=== PATIENT | male | born 1935 | race Caucasian/White ===

== ENCOUNTER 2019-03-22 12:08 | Emergency (ER) | payer MEDICARE, SELFPAY ==
[2019-03-22 12:08] VITALS: BP 144/90; PULSE 107; RESP 18; TEMP 36.9; O2SAT 98; BMI 30.1
[2019-03-22 12:27] VITALS: O2SAT 99
--- NOTE | 2019-03-22 12:27 | EKG12_ITS ---
Test Reason : SYNCOPE Blood Pressure : / mmHG Vent. Rate : 107 BPM Atrial Rate : 170 BPM P-R Int : 000 ms QRS Dur : 082 ms QT Int : 342 ms P-R-T Axes : 000 -45 029 degrees QTc Int : 456 ms Atrial fibrillation with rapid ventricular response Left anterior fascicular block Cannot rule out Inferior infarct (masked by fascicular block?) , age undetermined Poor R- wave Progression Abnormal ECG Confirmed by JEAN-CLAUDE OLMOS, MYRANDA ([id number]), tape editor JOSESITO SALAZAR ([id number]) on 03/24/2019 11:29:25 AM Referred By: ANNIE Confirmed By:MYRANDA BERMEO MD
--- NOTE | 2019-03-22 12:27 | RAD_ITS ---
STUDY: X-RAY CHEST REASON FOR EXAM: Male, 83 years old. Chest pain. TECHNIQUE: Single frontal view of the chest. COMPARISON: September 20, 2016 FINDINGS: Stable low volume inspiration with diffuse interstitial pattern. There is no demonstrated pleural abnormality. Mild cardiomegaly unchanged. Normal mediastinum and medardo. Normal visualized pulmonary arteries. Normal visualized aortic arch and descending thoracic aorta. Normal visualized thoracic spine. Normal visualized ribs, clavicles, and shoulders. There is no demonstrated abnormality of the visualized soft tissue structures of the upper abdomen. RAD/Chest 1 View (Portable) IMPRESSION: Stable chest with no acute superimposed finding. Electronically Signed: Tk Xiong MD at 14:11 EDT , Service support ,
--- NOTE | 2019-03-22 12:27 | CT_ITS ---
We are attempting to reach an attending provider to discuss findings. An addendum with communication details will be sent when the communication is complete. STUDY: CT BRAIN WITHOUT CONTRAST REASON FOR EXAM: Male, 83 years old. Syncope fall hit head RADIATION DOSAGE (If Supplied By Facility): CTDIvol = ( 44.99 ) mGy, DLP = ( 829.85 ) mGycm TECHNIQUE: Transaxial CT imaging of the brain was performed without administration of intravenous contrast material. Individualized dose optimization techniques were used for this CT. COMPARISON: No relevant priors. FINDINGS: Normal soft tissue structures. Normal calvarium. There is mild cerebral atrophy with widening of the extra-axial spaces and ventricular dilatation. There are areas of decreased attenuation within the white matter tracts of the supratentorial brain, consistent with microvascular disease changes. Normal basal ganglia and thalami. Normal brainstem. Normal cerebellum. To the right of midline there is a thickened appearance of the parafalcine line with hyperdensity. There is a hyperdense focal area in the right of midline within the posterior parietal lobe that is suspicious for small focal parenchymal hemorrhage. There are no findings of an acute ischemic infarction. Normal visualized paranasal sinuses. CT/Brain/Head without Contrast IMPRESSION: 3 mm right side, thickening of the parafalcine line. Findings suspicious for subdural hemorrhage with adjacent small focal parietal parenchymal hematoma measuring 3 x 5 mm. No visualized fracture. Electronically Signed: Dana Pham MD at 13:59 EDT Tel , Service support ,
--- NOTE | 2019-03-22 12:30 | ED.DCSUM_ITS ---
- ER Visit Summary Date of Service: 03/22/19 Chief Complaint: Acute syncopal event History of Present Illness: The patient is a 83 M history of Parkinson's disease, type 2 insulin-dependent diabetes and hypertension. Reportedly the patient felt fine today and is felt fine the last few days. He is accompanied by his . As he was walking in the zoroastrian in front of her. He passed out today falling backwards striking the back of his head. He had a brief loss of consciousness. He is on no blood thinners. He denies any neck pain. No weakness or numbness. He had no chest pain or shortness of breath prior to the event. He has not passed out before. He has had no history of any abnormal heart rhythms or cardiac disease. Physical Examination: Older male no acute distress. Brought in by squad. Initial blood pressure 144/90. Pulse ox 90% room air no signs of hypoxia. H EENT exam unremarkable. There is no signs of bruising or trauma or hematoma to the back of his head. Nontender. C-spine nontender. Trachea midline. Lungs clear to auscultation bilaterally. Heart irregularly irregular rate about 105. No murmurs. Chest wall nontender. Abdomen is soft and nontender. Normal bowel sounds no peritoneal signs. Pelvic girdle is intact. Patient is moving all 4 extremities. He has normal insurance auditor strength bilaterally. Normal dorsi plantar flexion. There is no joint tenderness, swelling or deformity. Back is nontender. Neurologically is awake and alert with no focal motor deficits. He is answering questions and following commands. Test Results: Initial EKG showed A. fib RVR with rate of 107. CBC showed a white count 7. Hemoglobin 11.3 his baseline hemoglobin past is been 12. Letter lites unremarkable BUN 28 creatinine 1. Normal gap. PT/INR normal. Troponin normal less than 0.015. Chest x-ray shows chronic changes no acute process. CT of his brain shows 3 mm thickening of the para fall seen Consistent with a possible intracranial bleed. There is also a parietal parenchymal hypodensity consistent with a 3 to 5 mm hematoma consistent with an intracranial bleed. There is no shift. There is no obvious skull fracture. Due to the findings of the CAT scan of the brain we did obtain a CT of the C- spine I have reviewed this there is no formal interpretation as of yet but I do not see any obvious acute cervical fracture. Emergency Department Course and Treatment: Patient had a syncopal event. On exam he appears to be in new onset A. fib with RVR. He will undergo cardiac work-up. I will CT his brain due to the head injury and the possibility that he may need to be started on blood thinners. Treatment Plan: On repeat exam at 1:45 PM patient is doing well and currently he is now spontaneously gone out of A. fib and is in a sinus rhythm in the 70s. Currently is having no symptoms. Given that this may be new onset A. fib and that he had a syncopal event with it I did discuss with both he and his and he will be admitted to the hospitalist. I discussed with them getting a cardiology consult while he is hospitalized. After the radiologist and I discussed the CAT scan of the brain see decision was made to transfer the patient. Discussed that with both he and his family at length. I have already spoken to [facility] and they will accept patient in transfer to the emergency department. I am awaiting his CT C-spine reading. Disposition: Admission Impression: Acute syncopal event Acute fall with closed head injury Acute small intracranial bleed New onset transient A. fib with RVR History of heart disease, diabetes and hypertension This note was generated with [employer] dictation software. It may contain incorrect words, spelling, and punctuation that were not noted in review of the chart prior to signing ED Disposition - Plan for ED Patient: Referrals: Cecilia Santoro MD [Primary Care Provider] -
[2019-03-22 12:35] LABS: Absolute Lymphocyte Count 1.17 X10^3/uL (0.83-4.51); Absolute Neutrophil Count 5.4 X10^3/uL (2.0-7.7); Basophil# 0.04 X10^3/uL; Basophil% 0.5 % (0-1); Eosinophil# 0.18 X10^3/uL; Eosinophils% 2.4 % (0-5); Hematocrit 33.4 % (40-54); Hemoglobin 11.3 g/dL (13.0-16.5); Lymphocyte # 1.17 X10^3/ul (4.0); Lymphocyte % 15.7 % (19-41); Mean Corp Hgb Conc 33.8 g/dL (32-36); Mean Corpuscular Hgb 33.2 pg (27.0-32.0); Mean Corpuscular Volume 98.2 fL (80-94); Mean Platelet Vol. 11.7 fl (6.2-12.0); Monocyte# 0.64 X10^3/uL; Monocyte% 8.6 % (0-10); NRBC Flagged by Analyzer 0 % (0-5); Neutrophil # 5.38 X10^3/uL (2.7-7.7); Platelet Count 217 K/mm3 (150-450); RBC Distribution Width CV 14.7 % (11.6-14.6); RBC Distribution Width SD 51.9 fl (35.1-43.9); White Blood Count 7.5 K/mm3 (4.4-11.0)
[2019-03-22 12:50] LABS: International Normalized Ratio 1.2; Prothrombin Time (Protime)PT. 14.7 SECONDS (11.7-14.9)
[2019-03-22 12:54] LABS: Anion Gap 9 (5-15); BUN 28 mg/dL (7-18); BUN/Creat Ratio 26.2 RATIO (10-20); Calcium,Total 8.5 mg/dL (8.5-10.1); Chloride 108 mmol/L (98-107); Creatinine, Serum 1.07 mg/dL (0.70-1.30); EST Glomerular Filtration Rate 70 mL/min (>60); Est Glom Filt Rate - Afr Amer 85 mL/min (>60); Estimated Creatinine Clearance 53.06 ml/min; Glucose 129 mg/dL (74-106); Potassium 4.2 mmol/L (3.5-5.1); Sodium Level 143 mmol/L (136-145); Thyroid Stim Hormone (TSH) 1.59 uIU/mL (0.358-3.74)
--- NOTE | 2019-03-22 13:49 | EKG12_ITS ---
Test Reason : RHYTHMN CHANGE Blood Pressure : / mmHG Vent. Rate : 066 BPM Atrial Rate : 066 BPM P-R Int : 168 ms QRS Dur : 078 ms QT Int : 412 ms P-R-T Axes : 065 -35 023 degrees QTc Int : 431 ms Normal sinus rhythm Left axis deviation Poor R- wave Progression Abnormal ECG Confirmed by JEAN-CLAUDE OLMOS, MYRANDA ([id number]), proposal editor JOSESITO SALAZAR ([id number]) on 03/24/2019 11:32:28 AM Referred By: ANNIE Confirmed By:MYRANDA BERMEO MD
[2019-03-22 14:16] VITALS: BP 148/94; PULSE 65; RESP 17; O2SAT 97
--- NOTE | 2019-03-22 14:30 | CT_ITS ---
STUDY: CT CERVICAL SPINE WITHOUT CONTRAST REASON FOR EXAM: Male, 83 years old. Syncope and fall. RADIATION DOSAGE (If Supplied By Facility): CTDIvol = ( 29.19 ) mGy, DLP = ( 701.73 ) mGycm TECHNIQUE: High resolution transaxial imaging was performed without contrast material. Sagittal and coronal images were reconstructed. Individualized dose optimization techniques were used for this CT. COMPARISON: None FINDINGS: Normal craniovertebral junction. There are degenerative changes of the anterior atlantoaxial articulation. Normal odontoid process. Normal cervical lordosis. The vertebral body heights are preserved. There is multilevel facet hypertrophy. There is multilevel endplate spondylosis and loss of disc height to 7 with degenerative changes. No significant central stenosis nor narrowing of the intervertebral neuroforamina. No acute fracture nor dislocation is visualized. There is a granuloma within the left lung apex. There are vascular calcifications present. There is mild opacification of the visualized left mastoid air cells. CT/Spine Cervical without Contras IMPRESSION: Multilevel degenerative changes, as described above. Atherosclerosis. Mild opacification of the visualized left mastoid air cells consistent with a history of mastoiditis. Electronically Signed: Delmi Herr MD at 15:35 EDT Tel , Service support ,
[2019-03-22 16:00] VITALS: PULSE 69; RESP 14
[2019-03-22 17:17] VITALS: BP 144/90; PULSE 82; RESP 16; O2SAT 98
--- NOTE | 2019-03-22 17:17 | ED.RN ---
REPORT TO [place] AT [facility] AND [place] WITH [facility]. PT SKIN P/W/D, RESP EVEN AND UNLABORED, PT A&O X 3, NO DISTRESS NOTED. PT OUT OF ED WITH [facility] FOR TRANSPORT TO [facility].
== END 2019-03-22 17:19 | disposition short-term general hospital (02) ==
PROVIDERS: Emergency Provider Emergency Medicine; Family Provider Internal Medicine; PCP Internal Medicine
DX: R55 Syncope and collapse (principal); S06.369A Traumatic hemorrhage of cerebrum, unspecified, with loss of consciousness of unspecified duration, initial encounter; W19.XXXA Unspecified fall, initial encounter; Y93.01 Activity, walking, marching and hiking; Y92.22 Religious institution as the place of occurrence of the external cause; I48.91 Unspecified atrial fibrillation; G20 Parkinson's disease; E11.9 Type 2 diabetes mellitus without complications; I11.9 Hypertensive heart disease without heart failure; Z79.4 Long term (current) use of insulin; Z79.82 Long term (current) use of aspirin; Z79.84 Long term (current) use of oral hypoglycemic drugs; Z79.899 Other long term (current) drug therapy
CPT/HCPCS: 70450; 71045; 72125; 80048; 84443; 84484; 85025; 85610; 93005; 99285; J7030; A4216

== ENCOUNTER 2019-09-22 12:15 | Observation (INO) | payer MEDICARE, SELFPAY ==
[2019-05-26 14:07] VITALS: BMI 29.5
[2019-09-22] VITALS (14 sets, daily range): BP systolic 141–181; BP diastolic 75–110; PULSE 90–156; RESP 14–19; TEMP 36.6; O2SAT 96–99; BMI 29.2; BMI 28.5
--- NOTE | 2019-09-22 13:03 | EKG12_ITS ---
Test Reason : PALPITATIONS Blood Pressure : / mmHG Vent. Rate : 147 BPM Atrial Rate : 159 BPM P-R Int : 000 ms QRS Dur : 076 ms QT Int : 296 ms P-R-T Axes : 000 -30 030 degrees QTc Int : 463 ms Atrial fibrillation with rapid ventricular response Left axis deviation Nonspecific ST abnormality Abnormal ECG Confirmed by DAVID BLAS ([id number]), newspaper editor managing JOSESITO SALAZAR ([id number]) on 09/23/2019 2:29:34 PM Referred By: KRAIG/MAVIS Confirmed By:DAVID BLAS
--- NOTE | 2019-09-22 13:03 | RAD_ITS ---
STUDY: X-RAY CHEST REASON FOR EXAM: Male, 83 years old. Chest pain/palpitations TECHNIQUE: Single AP portable view of the chest. COMPARISON: Comparison is made with prior examination dated March 22, 2019. FINDINGS: EKG electrodes are seen. The lungs are clear and expanded. There is no demonstrated pleural abnormality. Normal size heart. Normal mediastinum and medardo. Normal visualized pulmonary arteries. There is atherosclerotic calcification of the aortic arch with tortuosity. Normal visualized thoracic spine. Normal visualized ribs, clavicles, and shoulders. I suspect a hiatal hernia. RAD/Chest 1 View (Portable) IMPRESSION: No acute abnormality is seen. Electronically Signed: Ki Faye, at 13:28 EST , Service support ,
[2019-09-22 13:14] LABS: Absolute Lymphocyte Count 1.18 X10^3/uL (0.83-4.51); Absolute Neutrophil Count 7.9 X10^3/uL (2.0-7.7); Basophil# 0.03 X10^3/uL; Basophil% 0.3 % (0-1); Eosinophil# 0.04 X10^3/uL; Eosinophils% 0.4 % (0-5); Hemoglobin 11.9 g/dL (13.0-16.5); Lymphocyte # 1.18 X10^3/ul (4.0); Lymphocyte % 11.8 % (19-41); Mean Corpuscular Hgb 33.5 pg (27.0-32.0); Mean Corpuscular Volume 98.6 fL (80-94); Mean Platelet Vol. 11.2 fl (6.2-12.0); Monocyte# 0.86 X10^3/uL; Monocyte% 8.6 % (0-10); NRBC Flagged by Analyzer 0 % (0-5); Neutrophil # 7.87 X10^3/uL (2.7-7.7); Neutrophil % 78.4 % (47-70); Platelet Count 266 K/mm3 (150-450); RBC Distribution Width CV 13.9 % (11.6-14.6); RBC Distribution Width SD 50.1 fl (35.1-43.9); Red Blood Count 3.55 M/mm3 (4.6-6.2)
[2019-09-22 13:17] LABS: International Normalized Ratio 1.2; Prothrombin Time (Protime)PT. 14.7 SECONDS (11.7-14.9)
[2019-09-22] MEDS: Aspirin 81 MG TAB.CHEW 324 MG PO (13:17)
[2019-09-22] MEDS: dilTIAZem 25 MG/5 ML Vial IV BOLUS (13:18)
[2019-09-22 13:26] LABS: Anion Gap 8 (5-15); BUN 36 mg/dL (7-18); BUN/Creat Ratio 25.4 RATIO (10-20); Calcium,Total 9.1 mg/dL (8.5-10.1); Chloride 105 mmol/L (98-107); Creatinine, Serum 1.42 mg/dL (0.70-1.30); EST Glomerular Filtration Rate 50 mL/min (>60); Est Glom Filt Rate - Afr Amer 61 mL/min (>60); Estimated Creatinine Clearance 38.72 ml/min; Glucose 182 mg/dL (74-106); Potassium 3.6 mmol/L (3.5-5.1); Sodium Level 138 mmol/L (136-145)
--- NOTE | 2019-09-22 15:18 | ED.DCSUM_ITS ---
- ER Visit Summary Date of Service: 09/22/19 Chief Complaint: Palpitations History of Present Illness: The patient is a 83 M who presents with palpitations that began today. Patient saw his primary care physician today he noticed that he had a fast and irregular heartbeat. Patient states he had a similar episode last March and was admitted for new onset atrial fibrillation. Patient has no symptoms at this time so he does not know how long he has been in atrial fibrillation. Patient denies any nausea or vomiting. Patient denies any diaphoresis. Patient denies any shortness of breath. Physical Examination: Vital signs are stable. Patient is afebrile. Patient is in no acute distress. Oral mucosa is pink and moist. Neck is supple. Trachea is midline. There is no JVD noted. Heart was irregularly irregular and tachycardic. Lungs are clear and equal bilaterally. Abdomen is soft. Bowel sounds are normal. There is no tenderness. There is no rebound or guarding noted. Skin is warm dry. Cranial nerves II through XII are intact. There are no focal motor or sensory deficits noted. Extremities are intact. There is no calf tenderness or edema. Test Results: EKG showed atrial fibrillation with rapid ventricular response with a heart rate of 147. There are nonspecific ST-T wave changes. This was unchanged compared to previous EKG dated 03/22/2019. CBC showed a mild anemia with a hemoglobin of 11.9 hematocrit 35.0. Glucose was slightly elevated at 182. Troponin was slightly elevated 0.046. Portable chest x-ray was obtained. There is no acute cardiopulmonary process. Emergency Department Course and Treatment: Patient was given a dose of Cardizem here. Patient's heart rate improved. Patient remained in atrial fibrillation. Case was discussed with the hospitalist. He will admit the patient for observation. Patient understood and was agreeable with the plan. All questions were answered. Disposition: Admit for observation Impression: 1. New onset atrial fibrillation 2. Elevated troponin This note was generated with [employer] dictation software. It may contain incorrect words, spelling, and punctuation that were not noted in review of the chart prior to signing ED Disposition - Plan for ED Patient: Disposition: Acute Care Hospital [facility] Diagnosis: New onset atrial fibrillation, Elevated troponin Referrals: Cecilia Santoro MD [Primary Care Provider] -
[2019-09-22] MEDS: Metoprolol Tartrate 50 MG Tablet 75 MG PO ×2 (16:32→21:47)
[2019-09-22] MEDS: 0.9% Normal Saline 1,000 ML 75 ML IV (16:33)
[2019-09-22 17:01] LABS: Bedside Glucose 154 mg/dL (70-110)
--- NOTE | 2019-09-22 17:15 | ECHOCS_ITS ---
Reason For Study: AFIB Procedure This was a 2D Doppler, Color Flow transthoracic echocardiogram. The study was technically difficult. Contrast injection was performed. Pt supine for exam. Exam performed portable in patient room. Left Ventricle Normal size and thickness. The estimated ejection fraction is 65 %. Unable to assess diastolic dysfunction due to arrhythmia. No regional wall motion abnormalities noted. Right Ventricle Normal size and thickness. Normal systolic function. Atria Normal left atrium. Normal right atrium. Normal atrial septum. Mitral Valve Mild focal mitral valve thickening. Tricuspid Valve Normal tricuspid valve. Trivial tricuspid valve insufficiency. Right ventricular systolic pressure estimated to be 33 mmHg. Aortic Valve Trisinus/trileaflet aortic valve. Moderate diffuse aortic valve thickening. Probable and mobile right coronary cusp. Mild aortic stenosis. Trivial aortic valve insufficiency. Pulmonic Valve Normal pulmonic valve. Great Vessels Calcified aortic root. Moderate atherosclerosis of the aortic arch. Normal inferior vena cava. Inferior vena cava collapse with sniff. Pericardium/Pleural No pericardial effusion. Medication Diluted definity 3.0ml given slow IV push to enhance endocardial definition. MMode/2D Measurements & Calculations LVIDd: 4.2 cm IVSd: 0.91 cm Ao root diam: 3.6 cm LVIDs: 2.6 cm LVPWd: 1.0 cm RVDd: 3.5 cm FS: 37.2 % LAV(MOD-bp): 49.2 ml LVAd ap4: 26.4 cm2 SV(MOD-sp4): 56.5 ml LAV(MOD-bp) Indexed: 24.2 ml/m2 EDV(MOD-sp4): 74.2 ml LAV(MOD-sp2): 55.2 ml EDV(sp4-el): 75.7 ml LAV(MOD-sp4): 41.1 ml LVAs ap4: 11.2 cm2 ESV(MOD-sp4): 17.7 ml ESV(sp4-el): 19.1 ml EF(MOD-sp4): 76.1 % EF(sp4-el): 74.8 % SV(sp4-el): 56.7 ml LA A4 area: 16.5 cm2 LA dimension(2D): 4.8 cm RA A4 area: 11.5 cm2 Doppler Measurements & Calculations Ao V2 max: 188.4 cm/sec AI max laney: 343.0 cm/sec LV V1 max: 130.6 cm/sec Ao max P.5 mmHg AI max P.1 mmHg LV V1 max P.9 mmHg Ao V2 mean: 132.4 cm/sec AI dec slope: 200.0 cm/sec2 LV V1 mean P.3 mmHg Ao mean P.0 mmHg AI P1/2t: 502.3 msec LV V1 mean: 98.1 cm/sec Ao V2 VTI: 27.8 cm LV V1 VTI: 21.6 cm PA V2 max: 107.7 cm/sec TR max laney: 209.8 cm/sec TR max P.6 mmHg Interpretation Summary The estimated ejection fraction is 65 %. Unable to assess diastolic dysfunction due to arrhythmia. Mild aortic stenosis. Trivial aortic valve insufficiency. Trivial tricuspid valve insufficiency. Right ventricular systolic pressure estimated to be 33 mmHg. Patient appears to be in atrial fibrillation. The study was technically difficult. Contrast injection was performed. There is no comparison study available. Ordering Physician: Berlin Salazar Referring Physician: JOSEPH ROLLE Performed By: Amita Man, YAKELIN, RVT
--- NOTE | 2019-09-22 17:19 | PCM.HP.STD ---
History of Present Illness Date of Admission: 09/22/19 Chief Complaint: A. fib The patient is a 83 year old M with a PMH as below who presents from his doctor's office because of tachycardia and recurrence of his A. fib. He was recently diagnosed with A. fib back in March, it had led to an episode of syncope and at that time he hit his head and ended up having a subdural and a subarachnoid hematoma. He did okay with that was transferred to [facility] for a few days and then sent home. He was started on a beta-gely as well as aspirin as anticoagulation given his head bleed. He states that he feels fine, denies any chest pain or shortness of breath however when he went to his doctor's appointment today he was found to be tachycardic and then in A. fib again. He did not take any of his medications this morning which is likely why his heart rate was so high to begin with. In the ER he was found to be tachycardic into the 150s 160s and in A. fib, he was given a single dose of Cardizem bolus which seemed to control his heart rate a little bit down into the 110's. Past Medical History Past Medical History (Chronic Problems): Chronic Problems (Last Reviewed 04/15/19 @ 11:[address] 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 Parkinson disease G20 Resting tremor R25.9 Type 2 diabetes mellitus E11.9 Vitamin D deficiency E55.9 Allergies No Known Allergies Allergy (Verified 09/22/19 12:17) Home Medications: Ambulatory Orders Medication Instructions Recorded Cholecalciferol (Vitamin D3) 5,000 unit PO DAILY 08/01/16 [Vitamin D3] Glimepiride [Amaryl] 4 mg PO DAILY 08/01/16 Insulin Glargine,Hum.rec.anlog 16 unit SQ QHS 08/01/16 [Lantus] Lisinopril/Hydrochlorothiazide 1 tab PO DAILY 08/01/16 [Zestoretic Tablet] Metformin HCl [Metformin HCl ER] 1,000 mg PO BID 08/01/16 Sertraline HCl [Zoloft] 50 mg PO DAILY 08/01/16 Vitamin B Complex/Folic Acid [Sm 0.4 mg PO DAILY 08/01/16 Vitamin B Complex Tablet] Multivitamin [Multiple Vitamins] 1 ea PO DAILY 09/12/16 Carbidopa/Levodopa [Carbidopa-Levo 1 ea PO DAILY 03/22/19 ER 25-100 Tab] Carbidopa/Levodopa [Carbidopa-Levo 1 ea PO BID 03/22/19 ER 50-200 Tab] metoprolol tartrate 50 mg tablet 50 mg PO BID 04/13/19 aspirin 81 mg tablet,delayed 81 mg PO DAILY 05/27/19 release Cod Liver Oil 1 ea PO DAILY 09/22/19 Smoking Status: Former smoker Tobacco Use: Cigarettes, Cigars Alcohol: None Drugs: None Review of Systems Constitutional: Denies: Chills, Fever, Weight Change HEENT: Denies: Head Aches, Sinus Congestion, Sinus Drainage Cardiovascular: Reports: Edema. Denies: Chest Pain, Palpitations Respiratory: Denies: Cough, Shortness of breath at rest, Sputum production Gastrointestinal: Denies: Abdominal Pain, Nausea, Vomiting Genitourinary: Denies: Dysuria Musculoskeletal: Denies: Joint Pain, Joint Tenderness Skin: Denies: Rash, Wounds Neurological: Denies: Numbness, Tingling, Focal weakness Psychiatric: Denies: Anxiety, Depression Hematologic/ Lymphatic: Denies: Easy Bruising, Easy Bleeding VTE Information - Inpt Only VTE Present on Admission: No Patient Problems: Active and Suspected Problems (Last Reviewed 04/15/19 @ 11:[address] Adolfo Rawls MD) Elevated troponin (Acute) - Physical Exam Vitals/I&O's: Vital Signs Temp Pulse Resp BP Pulse Ox 97.8 F 118 H 16 174/110 H 98 09/22/19 16:19 09/22/19 16:32 09/22/19 16:19 09/22/19 16:32 09/22/19 16:19 Oxygen Flow Rate (L/min) 1 Oxygen Delivery Method Room Air Weight: 193 lb 1.999 oz Body Mass Index (BMI) 28.5 General: Alert, Oriented x3, Cooperative, No apparent distress HEENT: Atraumatic, PERRLA, EOMI, Normocephalic Oral: Moist Mucosa Neck: Supple, No JVD Lungs: Clear to auscultation, Normal air movement, No rhonchi, No wheeze, No rales Cardiovascular: No murmurs, Tachycardic, - - Irregular rhythm Abdomen: Soft, Non Tender, Non-Distended, No Hepato-splenomegaly Extremities: Capillary Refill Less than 3 Seconds, Edema - 1-2+ pitting edema bilaterally Skin: No rashes, No breakdown Neurological: Neuro grossly intact, Sensory exam intact to light touch and pain, - - Chronic tremor Psych/Mental Status: Normal Affect, Appropriate Laboratory Results 09/22/19 12:46: WBC 10.0, RBC 3.55 L, Hgb 11.9 L, Hct 35.0 L, MCV 98.6 H, MCH 33.5 H, MCHC 34.0, RDW Std Deviation 50.1 H, RDW Coeff of Lori 13.9, Plt Count 266, MPV 11.2, Immature Gran % (Auto) 0.500, Neut % (Auto) 78.4 H, Lymph % (Auto) 11.8 L, [place] % (Auto) 8.6, Eos % (Auto) 0.4, Baso % (Auto) 0.3, Absolute Neuts (auto) 7.9 H, Absolute Lymphs (auto) 1.18, Nucleated RBC % 0 09/22/19 12:46: PT 14.7, INR 1.2 09/22/19 12:46: Sodium 138, Potassium 3.6, Chloride 105, Carbon Dioxide 25.0, Anion Gap 8, BUN 36 H, Creatinine 1.42 H, Estim Creat Clear Calc 38.72, Est GFR (MDRD) Af Amer 61, Est GFR (MDRD) Non-Af 50 L, BUN/Creatinine Ratio 25.4 H, Glucose 182 H, Calcium 9.1, Troponin I 0.046 H 09/22/19 16:21: Troponin I 0.041 09/22/19 16:49: POC Glucose 154 H Current Medications Aspirin (Ecotrin) 81 mg PO DAILY@0800 [facility] Carbidopa/Levodopa (Sinemet Cr) 0.5 tablet PO DAILY [facility] Carbidopa/Levodopa (Sinemet Cr) 1 tablet PO BID [facility] Hydrochlorothiazide (Hctz) 25 mg PO DAILY [facility] Sodium Chloride () 1,000 mls @ 75 mls/hr IV .[id number] DANIELLE Last Admin: 09/22/19 16:33 Dose: 75 mls/hr Documented by: Insulin Glargine (Lantus (Bkc)) 16 units SC QHS [facility] Lisinopril (Zestril) 20 mg PO DAILY [facility] Metoprolol Tartrate (Lopressor (Beta Gely)) 75 mg PO BID [facility] Nitroglycerin (Nitrostat) 0.4 mg SUBLINGUAL Q5M PRN PRN Reason: CARDIAC/CHEST PAIN Sertraline HCl (Zoloft) 50 mg PO DAILY [facility] Sodium Chloride () 10 - 40 ml IV UD PRN PRN Reason: SALINE FLUSH Assessment/Plan All Active Problems (Last Reviewed 04/15/19 @ 11:[address] Adolfo Rawls MD) Elevated troponin (Acute) 1. A. fib with RVR/HTN/HLD -He did not take any of his metoprolol this morning or his blood pressure medications -Continue with his hydrochlorothiazide and lisinopril, and will increase his metoprolol from 50 mg p.o. twice daily to 75 mg p.o. twice daily -He was given a dose about an hour ago of his metoprolol and he had also gotten a dose of 25 mg of IV Cardizem prior to admission -We will check an echo, given his lower extremity edema, per review of the cardiology notes he did have an echo at [facility] after his head bleed and was found to have a normal EF but did not specify any diastolic dysfunction -I also discussed with him the risks and benefits of anticoagulation namely the risks of bleeding especially since he has had a recent subdural hematoma, he does say that he is unsteady on his feet but he has not fallen before and when he did fall that was because of syncope. He has a moment would prefer to stay on aspirin, I did explain to him that he does have a higher stroke risk of staying on aspirin with his A. fib but he says that he is okay with that 2. Parkinson's -Stable -Continue with his Sinemet DVT: 3. DM 2 -We will hold his glimepiride and continue with his long-acting insulin as well as a sliding scale insulin. -Also hold metformin 4. Depression/anxiety -Stable -Continue with Zoloft DVT: Low risk for observation Code Visit OBSV E&M: [id number] Initial observation care L3
[2019-09-22] MEDS: Metoprolol Tartrate 5 MG/5 ML Vial IV (21:45)
[2019-09-22] MEDS: 0.9% Saline Lock 10 ML Syringe IV (21:45)
[2019-09-22] MEDS: CARBIDOPA/LEVODOPA CR 50/200 Tablet PO (21:46)
[2019-09-22 22:01] LABS: Bedside Glucose 218 mg/dL (70-110)
[2019-09-23] VITALS (11 sets, daily range): BP systolic 116–144; BP diastolic 48–79; PULSE 94–116; RESP 16–20; TEMP 36.4–36.6; O2SAT 96–97
[2019-09-23] MEDS: 0.9% Normal Saline 1,000 ML 75 ML IV (04:50)
[2019-09-23 06:42] LABS: Absolute Lymphocyte Count 1.18 X10^3/uL (0.83-4.51); Absolute Neutrophil Count 4.6 X10^3/uL (2.0-7.7); Basophil# 0.03 X10^3/uL; Basophil% 0.5 % (0-1); Eosinophils% 1.5 % (0-5); Hematocrit 30.2 % (40-54); Hemoglobin 10.2 g/dL (13.0-16.5); Lymphocyte # 1.18 X10^3/ul (4.0); Lymphocyte % 17.9 % (19-41); Mean Corp Hgb Conc 33.8 g/dL (32-36); Mean Corpuscular Hgb 33.1 pg (27.0-32.0); Mean Corpuscular Volume 98.1 fL (80-94); Mean Platelet Vol. 10.8 fl (6.2-12.0); Monocyte# 0.65 X10^3/uL; Monocyte% 9.9 % (0-10); NRBC Flagged by Analyzer 0 % (0-5); Neutrophil % 69.7 % (47-70); Platelet Count 236 K/mm3 (150-450); RBC Distribution Width SD 49.7 fl (35.1-43.9); Red Blood Count 3.08 M/mm3 (4.6-6.2); White Blood Count 6.6 K/mm3 (4.4-11.0)
[2019-09-23 06:46] LABS: Bedside Glucose 101 mg/dL (70-110)
[2019-09-23 07:08] LABS: Anion Gap 7 (5-15); BUN 31 mg/dL (7-18); BUN/Creat Ratio 27.2 RATIO (10-20); Calcium,Total 8.4 mg/dL (8.5-10.1); Chloride 107 mmol/L (98-107); Creatinine, Serum 1.14 mg/dL (0.70-1.30); EST Glomerular Filtration Rate 65 mL/min (>60); Est Glom Filt Rate - Afr Amer 79 mL/min (>60); Estimated Creatinine Clearance 48.24 ml/min; Glucose 102 mg/dL (74-106); Potassium 3.5 mmol/L (3.5-5.1); Sodium Level 140 mmol/L (136-145)
[2019-09-23] MEDS: hydroCHLOROthiazide 25 MG Tablet PO (08:41)
[2019-09-23] MEDS: Aspirin E.C. 81 MG Tablet PO (08:41)
[2019-09-23] MEDS: Lisinopril 20 MG Tablet PO (08:42)
[2019-09-23] MEDS: CARBIDOPA/LEVODOPA CR 50/200 Tablet PO ×3 (08:42→21:22)
[2019-09-23] MEDS: Sertraline 50 MG Tablet PO (08:42)
[2019-09-23] MEDS: Metoprolol Tartrate 50 MG Tablet 75 MG PO (08:45)
[2019-09-23 11:21] LABS: Bedside Glucose 164 mg/dL (70-110)
--- NOTE | 2019-09-23 11:48 | CASEMGMT ---
Addendum entered by Kate Mims 09/23/19 13:27: present in room/visiting with pt at this time. Reviewed MCKAY form with pt/ at this time and questions answered. MCKAY form signed by , copy made and placed in chart, and original given to pt/. Discussed OP therapy with /pt and pt may interested in getting OP therapy. Script obtained from Dr Whitfield and given to at this time. She/pt aware they can take script to any OP location of their choice if pt decides he would like to go. They voice understanding. Original Note: RN CM [employer] MANAGER CM to room to meet with patient for initial transition planning/care coordination assessment. RN CM introduced self and role at [facility]. Pt voices understanding and consents to assessment at this time. Pt sitting up in recliner chair in room, in no distress at this time. Pt is A/O at this time and answers all questions appropriately. Care providers, pharmacy, and demographics verified/updated at this time. PCP: Dr Santoro Specialists: none Preferred Pharmacy: [facility] Insurance: [facility] Prescription Benefit: Yes Living Will/HPOA: Has both LW and Healthcare POA, who is his , [place]. Pt made aware copies are not on file @ [facility]. He states he will have someone bring these in. LNOK: , [place]. Has 2 daughters and 1 son Living Arrangements: Lives in one-story home w/ramp entrance with his . States he is independent w/ADL's and IADL's. States he ans his share home mgmt tasks and go grocery shopping together. Transportation: drives. Denies transportation concerns. DME: States has the following DME: Cane, uses a walker at times. Has a shower chair that he hasn't been using but states, I'm going to start using it soon. Has a W/C available but does not use. Has a functioning glucometer and he has all the needed supplies for it. Pt states no need for further DME at this time. HHC/SNF: No history of either. Denies needs for HHC and states is not homebound. PT/OT evals pending. Discussed option of OP therapy. Pt states Let me wait on that. I want to talk with my about it first. Pt wishes to return home and states has no concerns with going home at time of discharge. CM to follow for any discharge planning/needs. Pt voices no concerns/needs at this time. Advised pt to ask for CM if any further questions/concerns/needs arise. Voices understanding. PLAN: Home. May want OP therapy. Wants to talk with his 1st before deciding. Follow PT/OT Genia ARIAS RN CM
[2019-09-23] MEDS: Metoprolol Tartrate 25 MG Tablet PO (13:12)
--- NOTE | 2019-09-23 13:20 | PN_ITS ---
Patient Problems: Active and Suspected Problems (Last Reviewed 04/15/19 @ 11:[address] Adolfo Rawls MD) Elevated troponin (Acute) Reason for Visit: afib Subjective: Feels well. No chest pain. No palpitations. Vitals/I&O's: Vital Signs Temp Pulse Resp BP Pulse Ox 36.6 C 97 16 126/70 H 97 09/23/19 09:30 09/23/19 13:12 09/23/19 09:30 09/23/19 09:30 09/23/19 09:30 Oxygen Flow Rate (L/min) 1 Oxygen Delivery Method Room Air Weight: 87.6 kg Body Mass Index (BMI) 28.5 Intake and Output for Last 24 Hours 09/21/19 09/22/19 09/23/19 23:59 23:59 23:59 Intake Total 220 / 460 1611.25 / 1611.25 Output Total 125 / 325 450 / 450 Balance 95 / 135 1161.25 / 1161.25 General: Alert, No apparent distress HEENT: Atraumatic, Normocephalic Oral: Moist Mucosa, No Gingival or Mucosal Lesions/ Ulcerations Neck: No Nodes, Trachea Midline Lungs: Clear to auscultation, Normal air movement, No rhonchi, No wheeze, No rales Cardiovascular: Regular rate, Regular Rhythm, Normal S1, Normal S2, No murmurs Abdomen: Bowel Sounds Present, Soft, Non Tender, Non-Distended, No Hepato- splenomegaly, Passing Flatus Extremities: No edema, No Calf Tenderness Psych/Mental Status: Normal Affect, Appropriate Laboratory Results 09/22/19 12:46: Sodium 138, Potassium 3.6, Chloride 105, Carbon Dioxide 25.0, Anion Gap 8, BUN 36 H, Creatinine 1.42 H, Estim Creat Clear Calc 38.72, Est GFR (MDRD) Af Amer 61, Est GFR (MDRD) Non-Af 50 L, BUN/Creatinine Ratio 25.4 H, Glucose 182 H, Calcium 9.1, Troponin I 0.046 H 09/22/19 16:21: Troponin I 0.041 09/22/19 16:49: POC Glucose 154 H 09/22/19 19:26: Troponin I 0.037 09/22/19 21:43: POC Glucose 218 H 09/23/19 06:10: WBC 6.6, RBC 3.08 L, Hgb 10.2 L, Hct 30.2 L, MCV 98.1 H, MCH 33.1 H, MCHC 33.8, RDW Std Deviation 49.7 H, RDW Coeff of Lori 14.0, Plt Count 236, MPV 10.8, Immature Gran % (Auto) 0.500, Neut % (Auto) 69.7, Lymph % (Auto) 17.9 L, Colbert % (Auto) 9.9, Eos % (Auto) 1.5, Baso % (Auto) 0.5, Absolute Neuts (auto) 4.6, Absolute Lymphs (auto) 1.18, Nucleated RBC % 0 09/23/19 06:10: Sodium 140, Potassium 3.5, Chloride 107, Carbon Dioxide 26.0, Anion Gap 7, BUN 31 H, Creatinine 1.14, Estim Creat Clear Calc 48.24, Est GFR ( MDRD) Af Amer 79, Est GFR (MDRD) Non-Af 65, BUN/Creatinine Ratio 27.2 H, Glucose 102, Calcium 8.4 L 09/23/19 06:32: POC Glucose 101 09/23/19 11:11: POC Glucose 164 H Current Medications Aspirin (Ecotrin) 81 mg PO DAILY@0800 [facility] Last Admin: 09/23/19 08:41 Dose: 81 mg Documented by: Carbidopa/Levodopa (Sinemet Cr) 0.5 tablet PO DAILY [facility] Last Admin: 09/23/19 08:45 Dose: 0.5 tablet Documented by: Carbidopa/Levodopa (Sinemet Cr) 1 tablet PO BID [facility] Last Admin: 09/23/19 08:42 Dose: 1 tablet Documented by: Hydrochlorothiazide (Hctz) 25 mg PO DAILY [facility] Last Admin: 09/23/19 08:41 Dose: 25 mg Documented by: Insulin Glargine (Lantus (Bkc)) 16 units SC QHS [facility] Last Admin: 09/22/19 21:46 Dose: 16 units Documented by: Lisinopril (Zestril) 20 mg PO DAILY [facility] Last Admin: 09/23/19 08:42 Dose: 20 mg Documented by: Metoprolol Tartrate (Lopressor (Beta Gely)) 100 mg PO BID [facility] Metoprolol Tartrate (Lopressor (Beta Gely)) 5 mg IV Q8 PRN PRN Reason: HR greater than 120 Nitroglycerin (Nitrostat) 0.4 mg SUBLINGUAL Q5M PRN PRN Reason: CARDIAC/CHEST PAIN Sertraline HCl (Zoloft) 50 mg PO DAILY [facility] Last Admin: 09/23/19 08:42 Dose: 50 mg Documented by: Sodium Chloride () 10 - 40 ml IV UD PRN PRN Reason: SALINE FLUSH Last Admin: 09/22/19 21:45 Dose: 10 ml Documented by: STROKE Vital Signs/Narrative: Vital Signs Temp Pulse Resp BP Pulse Ox 09/23/19 13:12 97 09/23/19 09:30 36.6 C 94 16 126/70 H 97 Medical Necessity - Tobacco Use Smoking Status: Former smoker Tobacco Use: Cigarettes, Cigars Assessment/Plan All Active Problems (Last Reviewed 04/15/19 @ 11:[address] Adolfo Rawls MD) Elevated troponin (Acute) 1. afib with RVR * improved * increase metoprolol to 100 BID, if HR remains stable, then could discharge with follow up with cardiology * h/o brain bleed. pt prefers not to be on anticoagulation * on ASA 2. Troponin elevation * minimal elevation * EF 65% * 2/2 above 3. disposition: to home pending improvement of HR. Code Visit OBSV E&M: 79078 Subsequent observation care L2
[2019-09-23 16:15] LABS: Bedside Glucose 213 mg/dL (70-110)
[2019-09-23] MEDS: Metoprolol Tartrate 100 MG Tablet PO (21:22)
[2019-09-23 21:30] LABS: Bedside Glucose 200 mg/dL (70-110)
[2019-09-24] VITALS (8 sets, daily range): BP systolic 97–158; BP diastolic 60–83; PULSE 85–123; RESP 16; TEMP 36.7–37; O2SAT 95–99
[2019-09-24 06:35] LABS: Bedside Glucose 91 mg/dL (70-110)
[2019-09-24] MEDS: Sertraline 50 MG Tablet PO (08:51)
[2019-09-24] MEDS: Lisinopril 20 MG Tablet PO (08:52)
[2019-09-24] MEDS: hydroCHLOROthiazide 25 MG Tablet PO (08:52)
[2019-09-24] MEDS: Aspirin E.C. 81 MG Tablet PO (08:52)
[2019-09-24] MEDS: CARBIDOPA/LEVODOPA CR 50/200 Tablet PO ×2 (08:52)
[2019-09-24] MEDS: Metoprolol Tartrate 100 MG Tablet PO (08:52)
[2019-09-24] MEDS: dilTIAZem CD 120 MG Capsule PO (10:37)
[2019-09-24 11:10] LABS: Bedside Glucose 170 mg/dL (70-110)
--- NOTE | 2019-09-24 11:22 | CON.PCM_ITS ---
Reason for Consult Date of Consultation: 09/24/19 Reason for Consultation: Atrial fibrillation History of Present Illness: The patient is a 83 year old M with a PMH as below who presents from his doctor's office because of A. fib with RVR. He was recently diagnosed with A. fib back in March. At that time he had an episode of syncope and he hit his head and ended up having a subdural and a subarachnoid hematoma. It was unclear if he had the intracranial bleed first and had syncope and the A. fib was a coincidental finding as his rate was in the 110s upon arrival to the emergency room or if he had an arrhythmia that led to syncope and then intracranial bleed due to the fall. He had an event monitor subsequently which showed A. fib with RVR episodically. He did okay with that was transferred to [facility] for a few days and then sent home. He was started on a beta-chito as well as aspirin but it was decided not to keep him on anticoagulation given his head bleed. In the ER he was found to be tachycardic into the 150s 160s and in A. fib, he was given a single dose of Cardizem bolus which seemed to control his heart rate a little bit down into the 110's. Patient was admitted to the hospital and his metoprolol was increased 200 mg p.o. twice daily. His heart rate still remains in the 110s to 120s. Review of his telemetry reveals no significant bradycardia. Patient states he feels fine and wants to go home. Review of systems: All systems reviewed. All else is negative except that in the HPI ] Past Medical History Allergies/Adverse Reactions: Allergies No Known Allergies Allergy (Verified 09/22/19 12:17) Home Medications: Ambulatory Orders Medication Instructions Recorded Cholecalciferol (Vitamin D3) 5,000 unit PO DAILY 08/01/16 [Vitamin D3] Glimepiride [Amaryl] 4 mg PO DAILY 08/01/16 Insulin Glargine,Hum.rec.anlog 16 unit SQ QHS 08/01/16 [Lantus] Lisinopril/Hydrochlorothiazide 1 tab PO DAILY 08/01/16 [Zestoretic 20/25 Tablet] Metformin HCl [Metformin HCl ER] 1,000 mg PO BID 08/01/16 Sertraline HCl [Zoloft] 50 mg PO DAILY 08/01/16 Vitamin B Complex/Folic Acid [Sm 0.4 mg PO DAILY 08/01/16 Vitamin B Complex Tablet] Multivitamin [Multiple Vitamins] 1 ea PO DAILY 09/12/16 Carbidopa/Levodopa [Carbidopa-Levo 1 ea PO DAILY 03/22/19 ER 25-100 Tab] Carbidopa/Levodopa [Carbidopa-Levo 1 ea PO BID 03/22/19 ER 50-200 Tab] metoprolol tartrate 50 mg tablet 50 mg PO BID 04/13/19 aspirin 81 mg tablet,delayed 81 mg PO DAILY 05/27/19 release Cod Liver Oil 1 ea PO DAILY 09/22/19 Past Medical History (Chronic Problems): Chronic Problems (Last Reviewed 04/15/19 @ 11:[address] 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 Smoking Status: Former smoker Tobacco Use: Cigarettes, Cigars Alcohol: None Drugs: None Objective: Vital Signs Temp Pulse Resp BP Pulse Ox 98.1 F 123 H 16 158/83 H 98 09/24/19 08:51 09/24/19 08:52 09/24/19 08:51 09/24/19 08:51 09/24/19 08:51 Oxygen Flow Rate (L/min) 1 Oxygen Delivery Method Room Air Weight: 193 lb 1.999 oz Body Mass Index (BMI) 28.5 Intake and Output for Last 24 Hours 09/22/19 09/23/19 09/24/19 23:59 23:59 23:59 Intake Total 220 / 460 3172.50 / 3172.50 125 / 125 Output Total 125 / 325 450 / 450 Balance 95 / 135 2722.50 / 2722.50 125 / 125 General: Awake, Alert, Oriented x 3 HEENT: Atraumatic Oral: Moist Mucosa Neck: Supple Lungs: Clear to auscultation Cardiovascular: Irregular Rhythm Abdomen: Soft Extremities: No edema Skin: No Rashes Psych/Mental Status: Appropriate Rhythm: EKG: ECHO: Stress Test: Cardiac Cath: PCI: CT Surgery: Holter monitor: EPS: PPM: CXR: Chest CT Scan: Assessment/Plan 1. Atrial fibrillation: Continue metoprolol at current dose. I would recommend adding Cardizem CD at 120 mg p.o. daily. Okay to discontinue the hydrochlorothiazide and decrease the lisinopril to 20 mg p.o. daily to allow for the increased dosage of metoprolol and added Cardizem. As an outpatient if his blood pressure is high we can make adjustments to his medications based on his heart rate. No anticoagulation at this time because of history of fall and intracranial bleed. Patient is okay to be discharged home from a cardiac standpoint. He can follow-up with Dr. Rawls as an outpatient.
--- NOTE | 2019-09-24 15:10 | DCINST_ITS ---
- Discharge Diagnoses Current Active Problems: Current Active and Chronic Problems (Last Reviewed 04/15/19 @ 11:[address] Adolfo Rawls MD) Elevated troponin (Acute) New onset atrial fibrillation (Chronic 03/22/19) You will use the following diet at home:: Cardiac Call your doctor if you observe: Shortness of breath, Chest pain, Increased palpitations (irregular heartbeat) Allergies/Adverse Reactions: Allergies No Known Allergies Allergy (Verified 09/22/19 12:17) Medications to take at Discharge Cholecalciferol (Vitamin D3) [Vitamin D3] 5,000 unit PO DAILY 08/01/16 Glimepiride [Amaryl] 4 mg PO DAILY 08/01/16 Insulin Glargine,Hum.rec.anlog [Lantus] 16 unit SQ QHS 08/01/16 Lisinopril/Hydrochlorothiazide [Zestoretic Tablet] 1 tab PO DAILY 08/01/16 Metformin HCl [Metformin HCl ER] 1,000 mg PO BID 08/01/16 Sertraline HCl [Zoloft] 50 mg PO DAILY 08/01/16 Vitamin B Complex/Folic Acid [Sm Vitamin B Complex Tablet] 0.4 mg PO DAILY 08/01/16 Multivitamin [Multiple Vitamins] 1 ea PO DAILY 09/12/16 Carbidopa/Levodopa [Carbidopa-Levo ER 25-100 Tab] 1 ea PO DAILY 03/22/19 Carbidopa/Levodopa [Carbidopa-Levo ER 50-200 Tab] 1 ea PO BID 03/22/19 aspirin 81 mg tablet,delayed release 81 mg PO DAILY 05/27/19 Cod Liver Oil 1 ea PO DAILY 09/22/19 Diltiazem CD [Cardizem CD] 120 mg PO DAILY #30 cap 09/24/19 Metoprolol Tartrate [Lopressor (beta chito)] 100 mg PO BID #60 tab 09/24/19 The following prescriptions were given: Diltiazem CD [Cardizem CD] 120 mg PO DAILY #30 cap Transmission Status: Pending to [id number] Metoprolol Tartrate [Lopressor (beta chito)] 100 mg PO BID #60 tab Transmission Status: Pending to [id number] Primary Care Physician: Cecilia Santoro MD [Primary Care Provider] - Within 2 Weeks Test Results: Test results from this visit will be discussed in further detail at your follow- up appointment, if applicable. Please Follow Up With: Adolfo Rawls MD When: 2-4 weeks, call for appointment Proposed Discharge Date: 09/24/19
--- NOTE | 2019-09-24 15:12 | DS.PCM_ITS ---
Discharge Date and Diagnosis - Problem List Patient Problems: Active and Suspected Problems (Last Reviewed 04/15/19 @ 11:[address] Adolfo Rawls MD) Elevated troponin (Acute) Date of Admission: 09/22/19 Date of Discharge: 09/24/19 - Primary Discharge Diagnosis Active and Suspected Problems (Last Reviewed 04/15/19 @ 11:[address] Adolfo Rawls MD) 1. afib with RVR * improved * increase metoprolol to 100 BID * seen by cardiology, who recommended Cardizem CD 120 * h/o brain bleed. pt prefers not to be on anticoagulation * on ASA 2. Troponin elevation * minimal elevation * EF 65% * 2/2 above - Secondary Discharge Diagnosis Chronic Problems (Last Reviewed 04/15/19 @ 11:[address] 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 Patient received a diltiazem IV bolus in the emergency room which improved his heart rate from the 150s to 1 teens. Patient otherwise felt well. Patient m etoprolol was increased yesterday to 100 twice daily from 50 twice daily. Patient was monitored overnight but in the morning his heart rate is still in the [address] Santos, of cardiology, was consulted and recommended Cardizem CD 120 mg daily. With that he also advised discontinuing his lisinopril and HCTZ. Heart rate has improved and currently in the 80s. Patient is asymptomatic. Plans with patient to be discharged home. Patient has follow-up appoint with Dr. Rawls in December. Given the new events, patient advised to follow-up in the coming weeks instead. Patient is on aspirin but he has had a history of intracranial hemorrhage due to a fall in the past and has not been a candidate for anticoagulation since then. [] Patient Problems: Active and Suspected Problems (Last Reviewed 04/15/19 @ 11:[address] Adolfo Rawls MD) Elevated troponin (Acute) - Physical Exam Vitals/I&O's: Vital Signs Temp Pulse Resp BP Pulse Ox 37.0 C 95 16 97/62 99 09/24/19 14:50 09/24/19 15:00 09/24/19 14:50 09/24/19 14:50 09/24/19 14:50 Oxygen Flow Rate (L/min) 1 Oxygen Delivery Method Room Air Weight: 87.6 kg Body Mass Index (BMI) 28.5 Intake and Output for Last 24 Hours 09/22/19 09/23/19 09/24/19 23:59 23:59 23:59 Intake Total 220 / 460 3172.50 / 3172.50 365 / 365 Output Total 125 / 325 450 / 450 Balance 95 / 135 2722.50 / 2722.50 365 / 365 General: Alert, No apparent distress HEENT: Atraumatic, Normocephalic Oral: Moist Mucosa, No Gingival or Mucosal Lesions/ Ulcerations Neck: No Nodes, Trachea Midline Lungs: Clear to auscultation, Normal air movement, No rhonchi, No wheeze, No rales Cardiovascular: Regular rate, Regular Rhythm, Normal S1, Normal S2 Neurological: - - masked facies Laboratory Results 09/23/19 16:11: POC Glucose 213 H 09/23/19 21:21: POC Glucose 200 H 09/24/19 06:30: POC Glucose 91 09/24/19 11:08: POC Glucose 170 H Current Medications Aspirin (Ecotrin) 81 mg PO DAILY@0800 [facility] Last Admin: 09/24/19 08:52 Dose: 81 mg Documented by: Carbidopa/Levodopa (Sinemet Cr) 0.5 tablet PO DAILY [facility] Last Admin: 09/24/19 08:52 Dose: 0.5 tablet Documented by: Carbidopa/Levodopa (Sinemet Cr) 1 tablet PO BID [facility] Last Admin: 09/24/19 08:52 Dose: 1 tablet Documented by: Diltiazem HCl (Cardizem Cd) 120 mg PO DAILY [facility] Last Admin: 09/24/19 10:37 Dose: 120 mg Documented by: Insulin Glargine (Lantus (Bkc)) 16 units SC QHS [facility] Last Admin: 09/23/19 21:24 Dose: 16 units Documented by: Metoprolol Tartrate (Lopressor (Beta Gely)) 100 mg PO BID [facility] Last Admin: 09/24/19 08:52 Dose: 100 mg Documented by: Metoprolol Tartrate (Lopressor (Beta Gely)) 5 mg IV Q8 PRN PRN Reason: HR greater than 120 Nitroglycerin (Nitrostat) 0.4 mg SUBLINGUAL Q5M PRN PRN Reason: CARDIAC/CHEST PAIN Sertraline HCl (Zoloft) 50 mg PO DAILY [facility] Last Admin: 09/24/19 08:51 Dose: 50 mg Documented by: Sodium Chloride () 10 - 40 ml IV UD PRN PRN Reason: SALINE FLUSH Last Admin: 09/22/19 21:45 Dose: 10 ml Documented by: Discharge Diet: Low fat/ Low Cholesterol Call your doctor if you observe: Shortness of breath, Chest pain, Increased palpitations (irregular heartbeat) Home Medications: Medications to take at Discharge Cholecalciferol (Vitamin D3) [Vitamin D3] 5,000 unit PO DAILY 08/01/16 Glimepiride [Amaryl] 4 mg PO DAILY 08/01/16 Insulin Glargine,Hum.rec.anlog [Lantus] 16 unit SQ QHS 08/01/16 Lisinopril/Hydrochlorothiazide [Zestoretic Tablet] 1 tab PO DAILY 08/01/16 Metformin HCl [Metformin HCl ER] 1,000 mg PO BID 08/01/16 Sertraline HCl [Zoloft] 50 mg PO DAILY 08/01/16 Vitamin B Complex/Folic Acid [Sm Vitamin B Complex Tablet] 0.4 mg PO DAILY 08/01/16 Multivitamin [Multiple Vitamins] 1 ea PO DAILY 09/12/16 Carbidopa/Levodopa [Carbidopa-Levo ER 25-100 Tab] 1 ea PO DAILY 03/22/19 Carbidopa/Levodopa [Carbidopa-Levo ER 50-200 Tab] 1 ea PO BID 03/22/19 aspirin 81 mg tablet,delayed release 81 mg PO DAILY 05/27/19 Cod Liver Oil 1 ea PO DAILY 09/22/19 Diltiazem CD [Cardizem CD] 120 mg PO DAILY #30 cap 09/24/19 Metoprolol Tartrate [Lopressor (beta gely)] 100 mg PO BID #60 tab 09/24/19 Following Prescrptions Were Given to Patient: Diltiazem CD [Cardizem CD] 120 mg PO DAILY #30 cap Transmission Status: Pending to [facility]24 Metoprolol Tartrate [Lopressor (beta gely)] 100 mg PO BID #60 tab Transmission Status: Pending to [facility] Primary Care Physician: Cecilia Santoro MD [Primary Care Provider] - Within 2 Weeks Please Follow Up With: Adolfo Rawls MD When: 2-4 weeks, call for appointment Disposition: Home Minutes spent on discharge:: 32 Patient Condition:: Good Medical Necessity - Tobacco Use Smoking Status: Former smoker Tobacco Use: Cigarettes, Cigars Meaningful Use Info Meaningful Use Diagnoses (Choose all that apply): None applicable OBSV E&M: 56659 Observation care discharge
== END 2019-09-24 15:11 | disposition home or self-care (01) ==
LOC: ED 15:29 → PCU 15:42
PROVIDERS: Admitting Provider Family Medicine; Emergency Provider Emergency Medicine; PCP Internal Medicine
DX: I48.0 Paroxysmal atrial fibrillation (principal); I10 Essential (primary) hypertension; E78.5 Hyperlipidemia, unspecified; Z79.899 Other long term (current) drug therapy; Z79.82 Long term (current) use of aspirin; G20 Parkinson's disease; E11.9 Type 2 diabetes mellitus without complications; F41.9 Anxiety disorder, unspecified; F32.9 Major depressive disorder, single episode, unspecified; E55.9 Vitamin D deficiency, unspecified; Z79.84 Long term (current) use of oral hypoglycemic drugs; Z87.891 Personal history of nicotine dependence
CPT/HCPCS: 36415; 71045; 80048; 82962; 84484; 85025; 85610; 93005; 93306; 96361; 96374; 96375; 97110; 97162; 97166; 99218; 99285; J7030; Q9957; A4216; C8929; G0378